=== PATIENT | male | born 1970 | race Caucasian/White ===

== ENCOUNTER 2018-03-02 09:50 | Outpatient (CLI) | payer OTHER, BC | END 2018-03-02 09:51 | disposition critical access hospital (66) | LOC: EMS 09:50 | PROVIDERS: ATTEND Surgery | DX: S51.812A Laceration without foreign body of left forearm, initial encounter (principal); W29.3XXA Contact with powered garden and outdoor hand tools and machinery, initial encounter; Y93.H2 Activity, gardening and landscaping; Y92.410 Unspecified street and highway as the place of occurrence of the external cause; Y99.0 Civilian activity done for income or pay | CPT/HCPCS: A0425; A0429 ==

== ENCOUNTER 2018-03-02 10:02 | Emergency (ER) | payer OTHER, BC ==
--- NOTE | 2018-03-02 10:29 | ED Physician Documentation ---
PD HPI UPPER EXT INJURY - Stated complaint Stated Complaint: L ARM LAC - Chief complaint Chief Complaint: Laceration - History of Present Illness Location: Left, Forearm Type of injury: Laceration (reaching to clear small brush with hand, while holding chainsaw with right hand. Bar kicked up and cut his forearm.) Where injury occurred: Work Timing - onset: Today Timing - details: Abrupt onset, Still present Worsened by: Moving, Palpating Associated symptoms: No: Weakness, Numbness, Swelling Contributing factors: No: Anticoagulated Similar symptoms before: Has not had sx before Recently seen: Not recently seen Review of Systems Neurologic: denies: Focal weakness, Numbness, Near syncope PD PAST MEDICAL HISTORY - Past Medical History Cardiovascular: None Respiratory: None Neuro: None - Allergies Allergies/Adverse Reactions: Allergies Allergy/AdvReac Type Severity Reaction Status Date / Time No Known Drug Allergies Allergy Verified 03/02/18 10:21 - Family History Family history: reports: Non contributory PD ED PE NORMAL - Vitals Vital signs reviewed: Yes - General General: Alert and oriented X 3, No acute distress (bloody dressing in place around left mid forearm. 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 ), No sensory deficit Results - Vitals Vitals: Oxygen O2 Source Room air Procedures - Laceration (location) left volar forearm Length in cm: 6 Wound type: Irregular, Into subcut fat, Clean. No: Into muscle Neurovascular status: Sensory intact, Motor intact Tendon involvement: Tendon intact. No: Tendon Injury Anesthesia: Lidocaine 1% with epi Wound Preparation: Chlorhexadine, Irrigated copiously NS Deep layer closure: Vicryl, size #-0 - enter number (4), # sutures - enter number (6) Skin layer closure: Nylon, Running, Size #-0 - enter number (4) Other: Patient tolerated well, No complications, Neurovascular intact, Dressing applied, Tetanus UTD Complexity: Simple PD MEDICAL DECISION MAKING - ED course Complexity details: considered differential (torn edge lac of forearm to fatty layer. No muscle involved, just visible. ), d/w patient - Sepsis Event Vital Signs: Oxygen O2 Source Room air Departure - Departure Disposition: 01 Home, Self Care Clinical Impression: Forearm laceration Qualifiers: Encounter type: initial encounter Laterality: left Qualified Code(s): S51.812A - Laceration without foreign body of left forearm, initial encounter Condition: Stable Record reviewed to determine appropriate education?: Yes Instructions: ED Laceration All Comments: It is okay to wash and shower. Clean off the wound twice a day with soap and water, or peroxide and water. Apply some antibiotic ointment to it to keep it moist. Also to watch for signs of infection such as purulence, redness or increasing pain. Return to your primary care or the ER at the specified time for suture removal. Suture removal 10-12 days. Tylenol ibuprofen if needed for pains. For your skin spots, you could try terbinafine along with hydrocortisone over- the-counter creams as it looks like ringworm. Discharge Date/Time: 03/02/18 12:21
[2018-03-02] MEDS ORDERED: BACITRACIN OINT TOP ONE (12:09)
[2018-03-02 12:22] VITALS: BP 140/78
== END 2018-03-02 12:21 | disposition home or self-care (01) ==
LOC: ED 10:02
DX: S51.812A Laceration without foreign body of left forearm, initial encounter (principal); L98.9 Disorder of the skin and subcutaneous tissue, unspecified; W29.3XXA Contact with powered garden and outdoor hand tools and machinery, initial encounter; Y93.H2 Activity, gardening and landscaping; Y99.0 Civilian activity done for income or pay
CPT/HCPCS: 1040M; 12002; 99283; A9270